=== PATIENT | male | born 1990 | race Caucasian/White ===

== ENCOUNTER 2024-12-16 15:10 | Emergency (ER) | payer OTHER ==
--- NOTE | 2024-12-16 15:15 | ERPHSYRPT ---
- History of Present Illness Time Seen by Provider: 12/16/24 15:15 Source: patient, EMS Exam Limitations: no limitations Physician History: This is a thin 34-year-old white male patient who arrives by the paramedics secondary to concern of possible overdose. Family noticed that the patient was unresponsive but breathing in a shallow manner. The paramedics were contacted by family members. On arrival the patient had shallow breathing and was unresponsive. Patient received intranasal Narcan and 0.4 mg of intravenous Narcan once an IV line was placed. Patient began waking up. He is a known user of heroin and opiates. Patient arrives to the emergency department more awake and alert and answering questions. He states he did use opiates today. He is able to tell me his name his birthdate and the day of the week and date. He denies chest pain. He denies nausea. He denies abdominal pain. Patient denies being suicidal or homicidal. Patient has a intestinal feeding tube in place secondary to chronic esophageal stricture Timing/Duration: today Severity: mild Associated Symptoms: denies symptoms Allergies/Adverse Reactions: No Known Drug Allergies Allergy (Unverified 12/16/24 15:30) Home Medications: Unobtainable 12/16/24 [History] Travel Risk - International Travel Have you traveled outside of the country in past 3 weeks: No - Emerging Infectious Disease Are you exhibiting symptoms associated with any current EIDs: No - Review of Systems Constitutional: No Symptoms Eyes: No Symptoms Ears, Nose, & Throat: No Symptoms Respiratory: No Symptoms Cardiac: No Symptoms Abdominal/Gastrointestinal: No Symptoms Genitourinary Symptoms: No Symptoms Musculoskeletal: No Symptoms Skin: No Symptoms Neurological: Lethargy (Mild but easily arousable at this time) Psychological: No Symptoms, No Suicidal Ideations, No Homicidal Ideations Endocrine: No Symptoms Hematologic/Lymphatic: No Symptoms Immunological/Allergic: No Symptoms All Other Systems: Reviewed and Negative - Past Medical History Pertinent Past Medical History: Yes Psycho-Social History: Other (Known abuser of opiates and heroin) - Nursing Vital Signs Nursing Vital Signs: Initial Vital Signs Pulse Rate 102 H 12/16/24 15:26 Respiratory Rate 20 12/16/24 15:26 Blood Pressure 87/58 12/16/24 15:26 O2 Sat by Pulse Oximetry 97 12/16/24 15:26 Pain Scale Pain Intensity 0 - Physical Exam General Appearance: no apparent distress, lethargy (Easily arousable and answers questions appropriately), thin Eye Exam: PERRL/EOMI, eyes nml inspection Ears, Nose, Throat Exam: dry mucous membranes Neck Exam: normal inspection, non-tender, supple, full range of motion Respiratory Exam: normal breath sounds, lungs clear, No chest tenderness, No respiratory distress Cardiovascular Exam: regular rate/rhythm, normal heart sounds, normal peripheral pulses Gastrointestinal/Abdomen Exam: soft, normal bowel sounds, other (Feeding tube in place left side of midline and supra umbilical), No tenderness Rectal Exam: not done Back Exam: normal inspection, normal range of motion, No CVA tenderness, No vertebral tenderness Extremity Exam: normal inspection, normal range of motion, pelvis stable Neurologic Exam: oriented x 3, cooperative, surgeon chief II-XII nml as tested, sensation nml Skin Exam: normal color, warm, dry Lymphatic Exam: No adenopathy SpO2 Interpretation: normal O2 Delivery: Room Air - Course Nursing assessment & vital signs reviewed: Yes EKG Interpreted by Me: RATE ([id number]), Sinus Tach, NORMAL AXIS, NORMAL INTERVALS, NORMAL QRS, Other (QTc is 456. No acute ischemia on today's twelve-lead EKG.) Ordered Tests: Active Orders 24 hr Category Date Time Status Production Trainer STAT Care 12/16/24 15:28 Active EKG-ER Only STAT Care 12/16/24 15:27 Active IV Insertion STAT Care 12/16/24 15:27 Active HEAD WITHOUT CONTRAST [CT] Stat Exams 12/16/24 15:28 Ordered ACETAMINOPHEN Stat Lab 12/16/24 15:27 Ordered CBC W DIFF Stat Lab 12/16/24 15:27 Ordered CMP Stat Lab 12/16/24 15:27 Ordered ETHYL ALCOHOL Stat Lab 12/16/24 15:27 Ordered SALICYLATE Stat Lab 12/16/24 15:27 Ordered UA W/RFX UR CULTURE Stat Lab 12/16/24 15:27 Ordered Urine Triage Profile Stat Lab 12/16/24 15:27 Ordered Medication Summary Generic Name Dose Route Start Last Admin Trade Name Freq PRN Reason Stop Dose Admin Sodium Chloride 1,000 mls @ 999 mls/hr 12/16/24 15:27 Sodium Chloride 0.9% 1000 Ml IV 12/16/24 16:27 .[id number] STA Discontinued Medications Generic Name Dose Route Start Last Admin Trade Name Freq PRN Reason Stop Dose Admin Sodium Chloride Confirm 12/16/24 15:32 Sodium Chloride 0.9% 1000 Ml Administered 12/16/24 15:33 Dose 1,000 mls @ ud .ROUTE .STK-MED ONE Ondansetron HCl 4 mg 12/16/24 15:27 Ondansetron Hcl 4 Mg/2 Ml Vial IV 12/16/24 15:28 STAT ONE Ondansetron HCl Confirm 12/16/24 15:32 Ondansetron Hcl 4 Mg/2 Ml Vial Administered 12/16/24 15:33 Dose 4 mg .ROUTE .STK-MED ONE - Progress Progress: improved Progress Note: 12/16/24 15:24 My medical decision making of the assignment of moderate complexity to this patient's medical issue today is based on review of the patient's past medical history, review the patient's medication list, reviewed patient drug allergy list, history present illness and physical findings on examination. The workup in this patient includes placement of intravenous line, infusion of normal saline crystalloid, CBC, CMP, urinalysis, urine drug triage, alcohol level, acetaminophen level, salicylate level, CT scan of the head and twelve-lead EKG. Differential diagnosis includes but is not limited to intentional/accidental overdose, recreational drug use, acute intracranial abnormality, electrolyte abnormalities, urinary tract infection, dehydration 12/16/24 15:41 Patient is more awake alert and oriented at this time. Patient states he knows what happened today. He is refusing the CAT scan of the head. He will allow us to finish the IV crystalloid that is infusing at this time. He does not want to wait for lab results. He understands the risks of leaving which could include worsening condition and even if his respiratory depression recurs at a significant level. He we will sign the AMA form. He again states he is not suicidal or homicidal. Counseled pt/family regarding: lab results, diagnosis, need for follow-up, rad results Medical Desision Making - Independent Historian Additional History obtained from: Balance Engineer/EMT - Departure Departure Disposition: AMA Clinical Impression: Recreational drug use, Opiate addiction Condition: Stable Critical Care Time: No
[2024-12-16] MEDS ORDERED: Sodium Chloride 0.9% 1000 ML 0 ML ONE (15:32)
[2024-12-16] MEDS ORDERED: Zofran 4 MG/2 ML VIAL ONE (15:32)
[2024-12-16 15:34] LABS: BASOPHIL % 0.4 % (0.2-1.2); Basophil (Absolute #) 0.04 x10^3/uL (0.01-0.08); Eosinophil % 0.3 % (0.8-7.0); Eosinophil (Absolute #) 0.03 x10^3/uL (0.04-0.54); Hematocrit 41.7 % (40.1-51.0); Hemoglobin 13.3 g/dL (13.7-17.5); IMMATURE GRAN # 0.01 x10^3u/L (0.001-0.031); IMMATURE GRAN % 0.1 % (0.001-0.429); Lymphocytes % 5.4 % (21.8-53.1); Mean Cell Volume 79.3 fL (79.0-92.2); Mean Corpuscular Hemoglobin 25.3 pg (25.7-32.2); Mean Corpuscular Hgb Concent. 31.9 g/dL (32.3-36.5); Mean Platelet Volume 9.2 fL (9.4-12.4); Monocyte (Absolute #) 0.52 x10^3/uL (0.30-0.82); Monocytes % 5.6 % (5.3-12.2); Neutrophil % 88.2 % (34.0-67.9); Platelet Count 278 x10^3/uL (163-337); Red Blood Count 5.26 x10^6/uL (4.63-6.08); Red Cell Distribution Width 14.8 % (11.6-14.4); White Blood Count 9.3 x10^3/uL (4.23-9.07)
[2024-12-16] MEDS: Zofran 4 MG/2 ML VIAL IV ONE (15:46)
[2024-12-16] MEDS: Sodium Chloride 0.9% 1000 ML 1,000 ML IV STA (15:46)
[2024-12-16 15:47] LABS: ACETAMINOPHEN < 10 ug/ml (10-30); ALBUMIN 4.5 g/dL (3.5-5.0); ALKALINE PHOSPHATASE 90 U/L (38-126); BLOOD UREA NITROGEN 13 mg/dL (9-20); CHLORIDE 97 mmol/L (98-107); Calcium 8.6 mg/dL (8.4-10.2); Carbon Dioxide 22 mmol/L (22-30); Creatinine 1 1.06 mg/dL (0.66-1.25); ETHYL ALCOHOL < 10 mg/dL (0-10); Glucose 212 mg/dL (74-106); Potassium 3.7 mmol/L (3.5-5.1); SALICYLATE < 1.0 mg/dL (2-20); SGOT/AST 34 U/L (17-59); SGPT/ALT 25 U/L (0-50); SODIUM 134 mmol/L (135-145); Total Protein 7.3 g/dL (6.3-8.2)
[2024-12-16 16:06] VITALS: BP 91/57; PULSE 101; RESP 14; O2SAT 96
[2024-12-16 16:26] LABS: Slide Review 1 YES
== END 2024-12-16 16:06 | disposition left against medical advice (07) ==
LOC: ED 15:10
DX: F11.20 Opioid dependence, uncomplicated (principal); R40.4 Transient alteration of awareness
CPT/HCPCS: 36415; 80053; 80143; 80179; 82077; 85025; 93005; 93041; 99284; J2405